=== PATIENT | male | born 1995 | race Two or more races ===

== ENCOUNTER 2020-10-24 16:04 | Emergency (ER) | payer OTHER ==
[~2020-10-24] VITALS: Ht 170.2 cm; Wt 90.7 kg
[2020-10-24 16:08] VITALS: BP 141/81
--- NOTE | 2020-10-24 16:42 | NUR ---
medically cleared by dr hernandez d/c to pd in stable condition.
== END 2020-10-24 16:43 ==
LOC: ER 16:11
DX: Z02.89 Encounter for other administrative examinations (principal)